=== PATIENT | male | born 1945 | race Hispanic/Latino ===

== ENCOUNTER 2017-11-21 15:27 | Emergency (ER) | payer MEDICARE ==
--- NOTE | 2017-11-21 16:07 | ED PDOC ---
Arrival/HPI - General Time Seen by Provider: 11/21/17 15:28 Historian: Patient - History of Present Illness Time/Duration: Prior to Arrival Symptom Onset: Sudden Symptom Course: Unchanged Activities at Onset: Rest Associated Symptoms (Text): 11/21/17 16:06 Patient was in the wound center and found to have an elevated blood pressure of 158/106. He was sent to the emergency department for evaluation. He is asymptomatic. No headache. No chest pain or dyspnea. There is a history of hypertension. He has been taking his medications. Past Medical History - Tetanus Immunization Tetanus Immunization: Unknown - Cardiac Hx Cardiac Disorders: Yes Hx Congestive Heart Failure: Yes Hx Hypertension: Yes - Pulmonary Hx Respiratory Disorders: No - Neurological HX Cerebrovascular Accident: Yes (R sided weakness) - HEENT Hx HEENT Disorder: No - Renal Hx Renal Disorder: No - Endocrine/Metabolic Hx Diabetes Mellitus Type 2: Yes - Hematological/Oncological Hx Blood Disorders: No - Integumentary Hx Dermatological Disorder: No - Musculoskeletal/Rheumatological Hx Falls: Yes - Gastrointestinal Hx Gastrointestinal Disorders: No - Genitourinary/Gynecological Hx Genitourinary Disorders: No Hx Reproductive Disorders: No - Psychiatric Hx Depression: No Hx Emotional Abuse: No Hx Physical Abuse: No Hx Substance Use: No - Surgical History Hx Orthopedic Surgery: Yes (back) - Anesthesia Hx Anesthesia: No Hx Anesthesia Reactions: No Hx Malignant Hyperthermia: No - Suicidal Assessment Feels Threatened In Home Enviroment: No Family/Social History - Physician Review Nursing Documentation Reviewed: Yes Family/Social History: Unknown Family HX Smoking Status: Former Smoker Hx Alcohol Use: No Hx Substance Use: No Hx Substance Use Treatment: No Allergies/Home Meds Allergies/Adverse Reactions: Allergies No Known Allergies Allergy (Verified 11/21/17 16:30) Home Medications: Home Meds Medication Instructions Recorded Confirmed Glimepiride [amaRYL] 4 mg PO DAILY 07/15/15 06/24/16 Review of Systems - Physician Review All systems were reviewed & negative as marked: Yes - Review of Systems Constitutional: Fatigue. absent: Fevers Respiratory: absent: SOB Cardiovascular: absent: Chest Pain Gastrointestinal: absent: Abdominal Pain, Nausea, Vomiting Neurological: absent: Headache, Dizziness Physical Exam Vital Signs Temp Pulse Resp BP Pulse Ox 11/21/17 18:42 98.1 F 83 18 157/81 H 96 11/21/17 18:08 98.1 F 99 H 18 164/110 H 97 11/21/17 16:51 102 H 147/108 H 11/21/17 16:30 98.1 F 109 H 18 147/108 H 95 Temperature: Afebrile Blood Pressure: Hypertensive Pulse: Regular Respiratory Rate: Normal Appearance: Positive for: Other (Morbidly obese) Pain Distress: None Mental Status: Positive for: Alert and Oriented X 3 - Systems Exam Head: Present: Atraumatic, Normocephalic Pupils: Present: PERRL Extroacular Muscles: Present: EOMI Conjunctiva: Present: Normal Mouth: Present: Moist Mucous Membranes Pharnyx: No: ERYTHEMA, EXUDATE, TONSILS ENLARGED Neck: Present: Normal Range of Motion Respiratory/Chest: Present: Clear to Auscultation, Good Air Exchange, Decreased Breath Sounds. No: Respiratory Distress, Accessory Muscle Use Cardiovascular: Present: Regular Rate and Rhythm, Normal S1, S2. No: Murmurs Abdomen: No: Tenderness, Distention, Peritoneal Signs, Rebound, Guarding Upper Extremity: Present: Normal Inspection. No: Cyanosis, Edema Neurological: Present: GCS=15, CN II-XII Intact, Speech Normal, Motor Func Grossly Intact Psychiatric: Present: Alert, Oriented x 3, Normal Insight, Normal Concentration Medical Decision Making ED Course and Treatment: 11/21/17 18:44 Blood pressure is improved. Patient is feeling well. Discussed in detail with , who will follow up in the office. Prescription for clonidine. - Lab Interpretations Lab Results: Lab Results 11/21/17 16:34: POC Glucose (mg/dL) 173 H - Medication Orders Current Medication Orders: Discontinued Medications Clonidine HCl (Catapres) 0.2 mg PO ONCE ONE Stop: 11/21/17 16:40 Last Admin: 11/21/17 16:51 Dose: 0.2 mg MAR Pulse and Blood Pressure Document 11/21/17 16:51 OCS (Rec: 11/21/17 16:[address] [id number] Pulse Pulse Rate (60-90 beats/min) 102 Blood Pressure Blood Pressure (100/60-150/90 mm Hg) 147/108 Nitroglycerin (Nitro-Bid 2% Oint) 1 ea TOP STAT STA Stop: 11/21/17 18:04 Last Admin: 11/21/17 18:25 Dose: 1 ea Disposition/Present on Arrival - Present on Arrival Any Indicators Present on Arrival: No History of DVT/PE: No History of Uncontrolled Diabetes: No Urinary Catheter: No History of Decub. Ulcer: No History Surgical Site Infection Following: None - Disposition Have Diagnosis and Disposition been Completed?: Yes Diagnosis: Hypertension Disposition: HOME/ ROUTINE Disposition Time: 18:44 Patient Plan: Discharge Condition: GOOD Discharge Instructions (ExitCare): High Blood Pressure in Adults Prescriptions: cloNIDine [Catapres] 0.1 mg PO BID #20 tab Referrals: Dav Nova MD [Primary Care Provider] - Follow up with primary
[2017-11-21 16:30] VITALS: BMI 41.8
[2017-11-21 16:31] VITALS: RESP 18; TEMP 98.1
[2017-11-21] MEDS ORDERED: Nitroglycerin 2% Ointment Foilpak UD TOP STA (18:03)
[2017-11-21 18:43] VITALS: PULSE 83; O2SAT 96
[2017-11-21 21:03] VITALS: BP 159/81
== END 2017-11-21 19:15 | disposition home or self-care (01) ==
LOC: ED 15:27
DX: I10 Essential (primary) hypertension (principal); E11.9 Type 2 diabetes mellitus without complications; I50.9 Heart failure, unspecified; Z87.891 Personal history of nicotine dependence

== ENCOUNTER 2017-11-26 15:10 | Emergency (ER) | payer MEDICARE ==
[2017-11-26 15:10] VITALS: BMI 41.8
--- NOTE | 2017-11-26 15:55 | ED PDOC ---
Arrival/HPI - General Historian: Patient - History of Present Illness Time/Duration: 1-3 hours Symptom Onset: Gradual Symptom Course: Unchanged Activities at Onset: Rest Context: Other (wound clinic) <Brandon Jain - Last Filed: 11/26/17 17:34> <LeannarayIesha A - Last Filed: 11/26/17 18:03> - General Chief Complaint: High Blood Pressure Time Seen by Provider: 11/26/17 15:24 - History of Present Illness Narrative History of Present Illness (Text): 11/26/17 15:51 Patient is a 71 year old male with PMH of HTN, CVA (2 years ago with R-sided defect), DM2, and diabetic foot wound presents to ED from his wound care clinic for elevated BP. He was sent by his wound care clinic last week for similarly elevated BP and was given clonidine 0.1 mg TID. He states that he has been taking all of his BP medications as prescribed. He states that he noticed he "wasn't feeling right" this morning and is having increased urinary frequency. He states that if the wound care clinic had not sent him for evaluation of his BP, he still would have come to ED because he "just doesn't feel quite right." He also admits to some blurry vision that he says is worse today. He denies fever/chills, CRENSHAW, CP, SOB, nausea/vomiting, or peripheral numbness/tingling. ( Brandon Jain) Past Medical History - Provider Review Nursing Documentation Reviewed: Yes - Tetanus Immunization Tetanus Immunization: Unknown - Cardiac Hx Cardiac Disorders: Yes Hx Congestive Heart Failure: Yes Hx Hypertension: Yes - Pulmonary Hx Respiratory Disorders: No - Neurological HX Cerebrovascular Accident: Yes (R sided weakness) - HEENT Hx HEENT Disorder: No - Renal Hx Renal Disorder: No - Endocrine/Metabolic Hx Diabetes Mellitus Type 2: Yes - Hematological/Oncological Hx Blood Disorders: No - Integumentary Hx Dermatological Disorder: No - Musculoskeletal/Rheumatological Hx Falls: Yes - Gastrointestinal Hx Gastrointestinal Disorders: No - Genitourinary/Gynecological Hx Genitourinary Disorders: No Hx Reproductive Disorders: No - Psychiatric Hx Depression: No Hx Emotional Abuse: No Hx Physical Abuse: No Hx Substance Use: No - Surgical History Hx Orthopedic Surgery: Yes (back) - Anesthesia Hx Anesthesia: No Hx Anesthesia Reactions: No Hx Malignant Hyperthermia: No - Suicidal Assessment Feels Threatened In Home Enviroment: No <Brandon Jain - Last Filed: 11/26/17 17:34> Family/Social History Family/Social History: Hypertension (mother) Smoking Status: Former Smoker Hx Alcohol Use: No Hx Substance Use: No Hx Substance Use Treatment: No <Brandon Jain - Last Filed: 11/26/17 17:34> Allergies/Home Meds <Brandon Jain - Last Filed: 11/26/17 17:34> <LeannarayIesha A - Last Filed: 11/26/17 18:03> Allergies/Adverse Reactions: Allergies No Known Allergies Allergy (Verified 11/26/17 15:15) Home Medications: Home Meds Medication Instructions Recorded Confirmed Glimepiride [amaRYL] 4 mg PO DAILY 07/15/15 06/24/16 Review of Systems - Physician Review All systems were reviewed & negative as marked: Yes - Review of Systems Constitutional: absent: Fatigue, Fevers Eyes: Other (blurry vision). absent: Eye Pain ENT: absent: Hearing Changes, Voice Changes Respiratory: absent: SOB, Cough Cardiovascular: absent: Chest Pain, Palpitations Gastrointestinal: absent: Abdominal Pain, Nausea, Vomiting Genitourinary Male: Frequency. absent: Dysuria, Hematuria Musculoskeletal: absent: Arthralgias Skin: absent: Rash, Pruritis Neurological: absent: Headache, Dizziness, Speech Changes, Facial Droop Endocrine: absent: Diaphoresis Hemo/Lymphatic: absent: Adenopathy Psychiatric: absent: Anxiety, Depression <Brandon Jain - Last Filed: 11/26/17 17:34> Physical Exam Vital Signs Reviewed: Yes Temperature: Afebrile Blood Pressure: Hypertensive Pulse: Tachycardic (mildly tachycardic at 106) Respiratory Rate: Normal Appearance: Positive for: Non-Toxic, Comfortable Pain Distress: None Mental Status: Positive for: Alert and Oriented X 3 - Systems Exam Head: Present: Atraumatic, Normocephalic Pupils: Present: PERRL Extroacular Muscles: Present: EOMI Conjunctiva: Present: Normal Mouth: Present: Dry Pharnyx: Present: Normal. No: ERYTHEMA, EXUDATE Nose (External): Present: Atraumatic Neck: Present: Normal Range of Motion. No: JVD Respiratory/Chest: Present: Clear to Auscultation. No: Wheezes, Rales, Rhonchi Cardiovascular: Present: Normal S1, S2, Peripheal Pulses Present, Tachycardic. No: Murmurs, Rub, Gallop Abdomen: No: Tenderness, Rebound, Guarding Upper Extremity: Present: Normal Inspection. No: Cyanosis, Edema Lower Extremity: Present: Normal Inspection. No: Edema Neurological: Present: CN II-XII Intact, Speech Normal, Motor Func Grossly Intact, Normal Sensory Function Skin: Present: Warm, Dry Psychiatric: Present: Alert, Oriented x 3 <Brandon Jain - Last Filed: 11/26/17 17:34> Vital Signs Temp Pulse Resp BP Pulse Ox 11/26/17 17:31 68 19 149/68 98 11/26/17 16:58 109 H 179/98 H 11/26/17 15:16 98.3 F 106 H 18 179/98 H 95 Medical Decision Making <Brandon Jain - Last Filed: 11/26/17 17:34> <Iesha Diaz - Last Filed: 11/26/17 18:03> ED Course and Treatment: 11/26/17 15:57 -Patient sent by wound clinic for elevated BP but also having some blurry vision today -Will get CBC, CMP, CXR, EKG, CT head w/o contrast to r/o hypertensive emergency -Clonidine 0.1 mg dose given in ED 11/26/17 17:34 -Patient seen and re-examined -Current BP is 149/68 with HR of 68 s/p single dose of 0.1 mg clonidine -Patient reports he is feeling better and the blurry vision has decreased ( Brandon Jain) 11/26/17 17:27 71 year old male presenting to the Emergency department complaining of high blood pressure. Patient Seen With Resident: In agreement with resident note which contains more details about the patient. Patient was seen and evaluated with resident. Came up with plan and treatment together. 11/26/17 17:31 Patient seen by resident and then evaluated by me. Presenting today with "not feeling right" and blurry vision after being sent from his scheduled wound care appt for hypertension. Reports compliance with medication. CT head negative. cxray negative. EKG unchanged. Trop x 1 negative. Given clonidine x 1. BP improved. Reports symptoms are now all resolved. 11/26/17 17:34 11/26/17 17:[address] Warner, who is aware and agrees to see the patient in his office on Sunday 12 pm. 11/26/17 18:03 (Iesha Diaz) - Lab Interpretations Lab Results: 11/26/17 16:20 11/26/17 16:20 Lab Results 11/26/17 16:20: Sodium 143, Potassium 4.3, Chloride 104, Carbon Dioxide 32, Anion Gap 12, BUN 18, Creatinine 1.0, Est GFR ( Amer) > 60, Est GFR (Non- Af Amer) > 60, Random Glucose 100, Calcium 9.6, Total Bilirubin 0.8, AST 19, ALT 35, Alkaline Phosphatase 67, Lactate Dehydrogenase 499, Total Creatine Kinase 47, Troponin I 0.03 D, NT-Pro-B Natriuret Pep 723 H, Total Protein 7.2, Albumin 3.9, Globulin 3.3, Albumin/Globulin Ratio 1.2 11/26/17 16:20: PT 11.4, INR 1.00, APTT 30.0 11/26/17 16:20: WBC 6.3, RBC 5.47, Hgb 14.8, Hct 45.4, MCV 83.0, MCH 27.1, MCHC 32.6, RDW 14.8 H, Plt Count 104 L, MPV 12.4 H, Gran % 78.4 H, Lymph % (Auto) 10.4 L, [place] % (Auto) 9.9 H, Eos % (Auto) 1.1 L, Baso % (Auto) 0.2, Gran # 4.90 , Lymph # (Auto) 0.7 L, [place] # (Auto) 0.6, Eos # (Auto) 0.1, Baso # (Auto) 0.01 - RAD Interpretation Radiology Orders: 11/26/17 15:49 CHEST PORTABLE [RAD] Stat 11/26/17 15:56 HEAD W/O CONTRAST [CT] Stat - Medication Orders Current Medication Orders: Discontinued Medications Clonidine HCl (Catapres) 0.1 mg PO STAT STA Stop: 11/26/17 15:50 Last Admin: 11/26/17 16:58 Dose: 0.1 mg MAR Pulse and Blood Pressure Document 11/26/17 16:58 [email or web address] (Rec: 11/26/17 16:59 [email or web address] [id number]) Pulse Pulse Rate (60-90) 109 Blood Pressure Blood Pressure (100/60-150/90) 179/98 <Brandon Jain - Last Filed: 11/26/17 17:34> - PA / FULL DECATOR OPERATOR / Resident Statement / has reviewed & agrees with the documentation as recorded. MD/DO has examined the patient and agrees with the treatment plan. - Scribe Statement The provider has reviewed the documentation as recorded by the Scribe <Iesha Diaz - Last Filed: 11/26/17 18:03> - Scribe Statement Saira Randlal All medical record entries made by the Scribe were at my direction and personally dictated by me. I have reviewed the chart and agree that the record accurately reflects my personal performance of the history, physical exam, medical decision making, and the department course for this patient. I have also personally directed, reviewed, and agree with the discharge instructions and disposition. (Iesha Diaz) Disposition/Present on Arrival - Present on Arrival History of DVT/PE: No History of Uncontrolled Diabetes: No Urinary Catheter: No History of Decub. Ulcer: No History Surgical Site Infection Following: None <Brandon Jain - Last Filed: 11/26/17 17:34> - Present on Arrival Any Indicators Present on Arrival: No - Disposition Have Diagnosis and Disposition been Completed?: Yes Disposition Time: 17:48 Patient Plan: Discharge <Iesha Diaz - Last Filed: 11/26/17 18:03> - Disposition Diagnosis: Hypertension, Ulcer of right lower leg Disposition: HOME/ ROUTINE Patient Problems: Current Active Problems Problem Status Onset Hypertension Acute Ulcer of right lower leg Acute Condition: GOOD Discharge Instructions (ExitCare): High Blood Pressure in Adults, Low Salt Diet Additional Instructions: Take blood pressure medication as prescribed. Follow-up with Dr. Fox at noon on Sunday. Return to ED immediately with any worsening symptoms. Referrals: Dav Nova MD [Primary Care Provider] - Follow up with primary Forms: [employer] ([place])
[2017-11-26 16:39] LABS: BASO # 0.01 K/mm3 (0.0-2.0); BASO % 0.2 % (0.0-3.0); EOS # 0.1 (0.0-0.7); EOS % 1.1 % (1.5-5.0); GRAN # 4.9 (1.4-6.5); GRAN % 78.4 % (50.0-68.0); HEMOGLOBIN 14.8 g/dL (14.0-18.0); LYMPH # 0.7 (1.2-3.4); LYMPH % 10.4 % (22.0-35.0); MEAN CORPUSCULAR HEMOGLOBIN 27.1 pg (25.0-35.0); MEAN CORPUSCULAR HGB CONC 32.6 g/dl (31.0-37.0); MEAN PLATELET VOLUME 12.4 fl (7.0-11.0); MONO # 0.6 (0.1-0.6); MONO % 9.9 % (1.0-6.0); RBC 5.47 10^6/uL (3.5-6.1); RED CELL DISTRIBUTION WIDTH 14.8 % (11.5-14.5); WHITE BLOOD COUNT 6.3 10^3/ul (4.5-11.0)
[2017-11-26 16:43] LABS: ALB/GLOB RATIO 1.2 (1.1-1.8); ALBUMIN 3.9 g/dL (3.0-4.8); ALT/SGPT 35 U/L (7-56); AST/SGOT 19 U/L (17-59); BLOOD UREA NITROGEN 18 mg/dL (7-21); CALCIUM 9.6 mg/dL (8.4-10.5); GFR AFRICAN-AMERICAN > 60; GFR NON-AFRICAN AMERICAN > 60; PROTHROMBIN TIME 11.4 SECONDS (9.4-12.5)
[2017-11-26 16:54] LABS: B-TYPE NATRIURETIC PEPTIDE 723 pg/mL (0-450); TROPONIN I 0.03 ng/mL
[2017-11-26 17:32] VITALS: BP 149/68; O2SAT 98
--- NOTE | 2017-11-26 17:44 | RAD ---
Date of service: 11/26/2017 HISTORY: Shortness of breath, hypertension COMPARISON: No prior. FINDINGS: LUNGS: No active pulmonary disease. PLEURA: No significant pleural effusion identified, no pneumothorax apparent. CARDIOVASCULAR: Cardiomegaly. No evidence of acute, significant cardiovascular disease. OSSEOUS STRUCTURES: No significant abnormalities. VISUALIZED UPPER ABDOMEN: Normal. OTHER FINDINGS: None. IMPRESSION: No active disease.
--- NOTE | 2017-11-26 17:45 | CT ---
Date of service: 11/26/2017 PROCEDURE: CT HEAD WITHOUT CONTRAST. HISTORY: Dizziness and hypertension COMPARISON: 07/15/2015 CT head. 07/16/2015 MRI brain TECHNIQUE: Axial computed tomography images were obtained through the head/brain without intravenous contrast. Coronal and sagittal reconstructed images. Radiation dose: Total exam DLP = 923.67 mGy-cm. This CT exam was performed using one or more of the following dose reduction techniques: Automated exposure control, adjustment of the mA and/or kV according to patient size, and/or use of iterative reconstruction technique. FINDINGS: HEMORRHAGE: No intracranial hemorrhage. BRAIN: No mass effect or edema. Cortical atrophy and chronic microvascular ischemic change. VENTRICLES: Ventricular dilatation similar to that seen previously. CALVARIUM: Unremarkable. PARANASAL SINUSES: Air-fluid level indicative of acute left maxillary sinusitis. Chronic right maxillary air cell disease. MASTOID AIR CELLS: Unremarkable as visualized. No inflammatory changes. OTHER FINDINGS: None. IMPRESSION: No acute intracranial abnormalities. No significant findings to account for the clinical presentation. No significant interval change compared to the prior examination(s).
[2017-11-26 18:19] VITALS: PULSE 70; RESP 18; TEMP 98.2
[2017-11-26 18:47] LABS: URINE BILIRUBIN NEGATIVE (NEGATIVE); URINE BLOOD TRACE-LYSED (NEGATIVE); URINE GLUCOSE (UA) NEGATIVE (NEGATIVE); URINE LEUKOCYTE ESTERASE NEGATIVE Leu/uL (NEGATIVE); URINE PROTEIN TRACE mg/dL (<30 mg/dL); URINE UROBILINOGEN 0.2 E.U./dL (<1 E.U./dL)
[2017-11-26 18:50] LABS: URINE APPEARANCE CLEAR (CLEAR); URINE COLOR LIGHT YELLOW (YELLOW)
[2017-11-26 18:52] LABS: URINE BACTERIA MOD (NEG); URINE WBC 0 - 2 /hpf (0-6)
--- NOTE | 2017-11-26 19:10 | CARD ---
APPROVED REPORT Date of service: 11/26/2017 EKG Measurement Heart [id number] <Conclusion> Suspect arm lead reversal, interpretation assumes no reversal Sinus rhythm with 1st degree AV block Right bundle branch block Possible Lateral infarct, age undetermined Inferior infarct, age undetermined Abnormal ECG
== END 2017-11-26 18:18 | disposition home or self-care (01) ==
LOC: ED 15:10
DX: I10 Essential (primary) hypertension (principal); E11.622 Type 2 diabetes mellitus with other skin ulcer; L97.819 Non-pressure chronic ulcer of other part of right lower leg with unspecified severity; Z86.73 Personal history of transient ischemic attack (TIA), and cerebral infarction without residual deficits; Z87.891 Personal history of nicotine dependence

== ENCOUNTER 2018-07-09 15:06 | Outpatient (CLI) | payer MEDICARE | END 2018-07-09 15:07 | disposition home or self-care (01) | LOC: RAD 15:07 ==